=== PATIENT | male | born 2000 | race Caucasian/White ===

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

== ENCOUNTER 2025-01-08 20:47 | Emergency (ER) | payer MEDICAID, SELFPAY ==
--- NOTE | 2025-01-08 20:46 | ECG_ITS ---
APPROVED REPORT Exam: Resting ECG HR:109 bpm ECG Measurements Heart Rate 109 AXES PA 159 P 29 QRSd 104 QRS 22 QT 330 T -25 QTc 394 Conclusion SINUS TACHYCARDIA LOW QRS VOLTAGE IN PRECORDIAL LEADS [QRS DEFLECTION < 1.0 mV IN CHEST LEADS] ABNORMAL RHYTHM ECG INTERPRETATION BASED ON A DEFAULT AGE OF 40 YEARS UNCONFIRMED REPORT Electronically signed by : Gray Ochoa, 01/08/2025 23:38:57
[2025-01-08 20:48] VITALS: BP 172/87; PULSE 113; RESP 18; TEMP 37.3; O2SAT 100; BMI 56.2
--- NOTE | 2025-01-08 21:04 | XR_ITS ---
PROCEDURE INFORMATION: Exam: XR Chest Exam date and time: 01/08/2025 9:29 PM Age: 24 years old Clinical indication: Pain; Chest pressure; Additional info: Chest pain TECHNIQUE: Imaging protocol: Radiologic exam of the chest. Views: 2 views. COMPARISON: No relevant prior studies available. FINDINGS: Lungs: Unremarkable. No consolidation. Pleural spaces: Unremarkable. No pleural effusion. No pneumothorax. Heart/Mediastinum: Unremarkable. No cardiomegaly. Bones/joints: Unremarkable. IMPRESSION: No acute findings.
--- NOTE | 2025-01-08 21:09 | ED_ITS ---
Discharge Plan Disposition Patient Disposition: Home, Self-Care Prescriptions Prescriptions: No Action ibuprofen 200 mg tablet 200 mg PO QID PRN Referrals Follow up/Referrals: Provider,Referral, MD [Primary Care Provider] - See instructions Activity Restrictions/Add. Instructions Additional Instructions/Restrictions: No evidence of an emergent medical condition today. I would recommend that you follow-up with your primary care doctor and discuss medical management of your morbid obesity including GLP-1 medication such as Ozempic etc. I highly recommend that for you with your situation. No further intervention needed from a cardiovascular standpoint Clinical Impressions Clinical Impression: Atypical chest pain, Morbid obesity Print Language Print Language: British Discharge ED Provider: Arely Ochoa [facility] General Chief Complaint: Chest Pain Stated Complaint: Chest Pain Time Seen by Provider: 01/08/25 20:58 Mode of Arrival: Ambulatory Description of Symptoms (Recalled from ER Triage Doc. by RN): Pt presents to ED for chest pressure X 3 days. Pt states he just figured it needed to be checked out. Pt is A&O*4 and states he has no pain and no prior medical hx. Pt states he uses a THC pen and drinks beer. History of Present Illness HPI narrative: Patient is a morbidly obese 24-year-old male presenting today with chest pain/pressure for the last 3 days. Located substernal nonradiating nonexertional no dyspnea associated with this. No leg swelling no hemoptysis no history of DVT or PE. No family history of that is of any concern he does not do any drugs. Related Data Home Medications ?Medication ?Instructions ?Recorded ?Confirmed ibuprofen 200 mg tablet 200 mg PO QID PRN 07/20/18 Allergies Allergy/AdvReac Type Severity Reaction Status Date / Time No Known Allergies Allergy Verified 01/21/18 17:48 [facility] Disclaimer: The information contained in this section may have been updated after the patient was seen, as this information can be updated by other users. Social History Smoking Status: Current every day smoker alcohol intake: never substance use type: denies use current occupational status: student Travel in the last 8 weeks: None household members: family housing: house Have you lived/traveled outside [place] in past 30 days?: No Contact w/someone who lives/traveled outside US past 30 days?: No Exposure to someone with infectious disease in past 14 days?: No Do you have a fever (greater than 100.4 F or 38 C)?: No Have you tested positive for COVID-19: No Exposed to someone with COVID-19 in past 14 days?: No Do you have a sore throat?: No Do you have a cough?: No Do you have any weakness?: No Do you have any diarrhea?: No Are you experiencing any unusual bleeding?: No Do you have any muscle aches/pain?: No Do you have any abdominal pain?: No Are you experiencing loss of taste or smell?: No ROS Obtained: Yes All systems reviewed & no additional complaints except as documented Physical Exam General General appearance: alert and in no apparent distress Respiratory Respiratory exam: Present normal lung sounds bilaterally; Absent respiratory distress Cardiovascular Cardiovascular exam: Present regular rate and normal rhythm Neurological Exam Neurological exam: Present alert and oriented X3 HEART Score HEART Score HEART Score assessment performed?: Yes History (anamnesis): Slightly suspicious ECG: Non-specific disturbance Age: <45 years Risk factors: No known risk factors Troponin: </= normal limit HEART Score: 1 Critical Care Critical Care Time Critical Care Time: No Medical Decision Making Baldom[place] Inquiry Pt receiving controlled substance: No Vital Signs Vital Signs: 01/08/25 20:48 01/08/25 20:48 Temperature 99.1 F Temperature Source Oral Pulse Rate 113 H Pulse Rate [Left] 113 H Respiratory Rate 18 Blood Pressure [Right Arm] 172/87 H Blood Pressure Mean [Right Arm] 115 02 Sat by Pulse Oximetry 100 Oxygen Delivery Method Room Air Lab Data Lab results reviewed: Yes I reviewed the patient's lab results. Labs: Lab Results 01/08/25 20:55: WBC 9.2, RBC 5.15, Hgb 13.1 L, Hct 40.5 L, MCV 78.6 L, MCH 25.4 L, MCHC 32.3, RDW 14.2, Plt Count 211, MPV 11.8 H, Neut % (Auto) 62.2, Lymph % (Auto) 28.0, Catron % (Auto) 7.6, Eos % (Auto) 1.6, Baso % (Auto) 0.4, Neut # (Auto) 5.7, Lymph # (Auto) 2.6, Catron # (Auto) 0.7, Eos # (Auto) 0.2, Baso # (Auto) 0.0, D-Dimer 0.34, Sodium 139, Potassium 3.8, Chloride 106, Carbon Dioxide 25, Anion Gap 11.8, BUN 11, Creatinine 0.60 L, Estimated Creat Clear 208, Estimated GFR 166, Est GFR ( Amer) 200, Glucose 130 H, Calcium 9.2, Total Bilirubin 0.2, AST 35, ALT 73, Alkaline Phosphatase 78, Troponin I < 0.01, Total Protein 7.6, Albumin 4.5, Globulin 3.1, Albumin/Globulin Ratio 1.5, HCV Ab MARCY w/Rflx PCR Qn Negative, HIV Ag/Ab Combo Qual Negative 01/08/25 20:55 01/08/25 20:55 Response Orders (Tests/Meds): ED MEDICATIONS Discontinued Medications Generic Name Dose Route Start Last Admin Trade Name Freq PRN Reason Stop Dose Admin Ketorolac Tromethamine 15 mg 01/08/25 21:04 01/08/25 21:14 Ketorolac 30mg/Ml Vial IV 01/08/25 21:05 15 mg ONCE ONE Administration ORDERS Category Date Time Status Chest XR 2 view (NOT portable) [XR chest 2V] Stat Exams 01/08/25 21:04 Taken CBC w/Auto Diff [Complete Blood Count Auto Diff] Stat Lab 01/08/25 20:55 Completed CMP [Comprehensive Metabolic Panel] Stat Lab 01/08/25 20:55 Completed D-Dimer Stat Lab 01/08/25 20:55 Completed HIV Combo Stat Lab 01/08/25 20:55 Completed Hepatitis C Ab Qual. W/ RFX Stat Lab 01/08/25 20:55 Completed Trop I [Troponin I] Stat Lab 01/08/25 20:55 Completed Troponin I Q3H Lab 01/09/25 00:15 Ordered Troponin I Q3H Lab 01/09/25 03:15 Ordered ECG Data Tracing #1: Attestation: I reviewed this ECG and interpreted as documented below: ECG Narrative: Ventricular rate of 109 sinus tachycardia there is an S1Q3T3 which is nonspecific otherwise no acute ischemic changes noted there is normal axis low voltage QRS presumptively secondary to morbid obesity MDM Narrative Medical Decision Narrative: 24-year-old with above history and physical came in initially tachycardic has an S1Q3T3. Will get a D-dimer as I cannot use PERC criteria to rule out PE. Given his morbid obesity that is a possibility. Acute coronary syndrome is much less likely with a single troponin as he is had ongoing symptoms since yesterday. Also will give him a dose of Toradol and get a two-view chest x-ray. Overall this is nonspecific. I had an extensive discussion with him regarding weight loss. I recommend that he follow-up with a primary care doctor and given his morbid obesity I highly recommended that he start a GLP-1 etc. Chest x-ray performed which I personally interpreted which shows no evidence of an acute cardiopulmonary emergency Labs unremarkable reassessment patient is doing much better clinically. This is not consistent with a cardiovascular emergency. Patient advised to follow-up with primary care doctor as stated above regarding his obesity. No further cardiac intervention needed today. Working diagnosis atypical chest pain which is nonspecific.
[2025-01-08] MEDS: KETOROLAC 30MG/ML VIAL 15 MG IV (21:14)
[2025-01-08 21:15] LABS: Basophils % 0.4 % (0.1-2.0); Eosinophils # 0.2 K/mm3 (0.0-0.4); Eosinophils % 1.6 % (0.1-12.0); Hematocrit 40.5 % (42.0-52.0); Hemoglobin 13.1 g/dL (14.1-18.0); Lymphocytes # 2.6 K/mm3 (0.7-4.5); Mean Corpuscular HGB Conc 32.3 g/dL (31.8-35.4); Mean Corpuscular Hemoglobin 25.4 pg (27.0-31.2); Mean Corpuscular Volume 78.6 fl (80-94); Mean Platelet Volume 11.8 fl (7.4-10.4); Monocytes # 0.7 K/mm3 (0.1-1.0); Monocytes % 7.6 % (1.7-9.3); Neutrophils # 5.7 K/mm3 (1.8-7.8); Neutrophils % 62.2 % (37.0-80.0); Platelet Count 211 K/mm3 (142-424); Red Blood Count 5.15 M/mm3 (4.60-6.20); Red Cell Distribution Width 14.2 % (11.5-17.5); White Blood Count 9.2 K/mm3 (4.8-10.8)
[2025-01-08 21:29] LABS: Albumin Level 4.5 g/dl (3.5-5.0); Chloride 106 mmol/L (98-107); Potassium 3.8 mmoL/L (3.5-5.1); Sodium 139 mmol/L (136-145)
[2025-01-08 21:32] LABS: Alanine Aminotransferase 73 U/L (12-78); Albumin/Globulin Ratio 1.5 (1.1-1.8); Alkaline Phosphatase 78 U/L (38-126); Anion Gap 11.8 mEq/L (5-15); Aspartate Amino Transferase 35 U/L (17-59); Bilirubin,Total 0.2 mg/dl (0.2-1.3); Blood Urea Nitrogen 11 mg/dl (9-20); Calcium 9.2 mg/dl (8.4-10.2); Carbon Dioxide 25 mmol/L (22.0-30.0); Creatinine Clearance Estimated 208 mL/min (50-200); Estimated Glomerular Filt Rate 166 ml/min (>60); GFR (African American) 200 ML/MIN (>60); Globulin 3.1 g/dL (1.3-3.2); Glucose 130 mg/dl (74-100); Total Protein,Serum 7.6 g/dl (6.3-8.2)
[2025-01-08 21:46] LABS: Troponin I < 0.01 ng/ml (0.00-0.034)
[2025-01-08 22:13] LABS: HIV Combo NEGATIVE (Negative)
[2025-01-08 22:16] LABS: D-Dimer 0.34 ug/mL (0.0-0.5)
[2025-01-08 22:21] LABS: Hepatitis C Ab Qual. W/ RFX NEGATIVE (Negative)
[2025-01-08 22:59] VITALS: BP 145/87; PULSE 113; RESP 17; TEMP 37.3; O2SAT 100
== END 2025-01-08 23:01 | disposition home or self-care (01) ==
PROVIDERS: Emergency Provider Student in an Organized Health Care Education/Training Program
DX: R07.89 Other chest pain (principal); E66.01 Morbid (severe) obesity due to excess calories; R07.9 Chest pain, unspecified; Z72.0 Tobacco use
CPT/HCPCS: 71046; 80053; 84484; 85025; 85378; 86803; 87389; 93005; 96374; 99284; J1885

== ENCOUNTER 2025-01-19 16:06 | Outpatient (CLI) | payer BC, SELFPAY ==
[2025-01-19 19:06] LABS: Direct LDL Cholesterol 117.64 mg/dL (100-129)
[2025-01-19 19:18] LABS: Hemoglobin A1C 6.6 % (4.0-6.0)
[2025-01-19 19:27] LABS: Thyroid Stimulating Hormone 2.53 uIU/mL (0.465-4.68)
[2025-01-19 19:37] LABS: Chol/HDL Ratio 6.1 (1-3.5); Cholesterol 189 mg/dl (140-200); HDL Cholesterol 31 mg/dl (40-60); Iron 65 ug/dL (49-181); Triglycerides 224 mg/dl (30-150); VLDL Cholesterol 45 mg/dL (0-40)
[2025-01-19 19:49] LABS: Total Iron Binding Capacity 387 ug/dL (261-462)
[2025-01-19 20:15] LABS: Ferritin 80.8 ng/ml (17.9-464)
== END 2025-01-19 23:59 | disposition home or self-care (01) ==
LOC: LAB.DROPOF 01-20 11:25
PROVIDERS: PCP Family Medicine; Visit Provider Family Medicine
DX: R71.8 Other abnormality of red blood cells (principal)
CPT/HCPCS: 80061; 82728; 83036; 83540; 83550; 84443